=== PATIENT | female | born 1980 | race Caucasian/White ===

== ENCOUNTER 2016-12-16 23:59 | Emergency (ER) | payer OTHER ==
--- NOTE | ~2016-12-16 | CT71 ---
[facility] A Service [facility] RADIOLOGY TEXT RESULTS PATIENT: KOLBY DAVIS LOCATION: SED : 80 UNIT #: [id number] AGE: [address]: Alhaji Cornelius MD SEX: F ORDER DR: [id number] [place] [id number] E MR#: [id number] Acc #: [id number] NAME: KOLBY DAVIS : 1980 SEX: F STUDY DATE/TIME: 12/17/2016 1:11 UNIT: SED ROOM: STUDY DESCRIPTION: CT Head Wo Contrast Attending Physician: Alhaji Cornelius M.D. Ordering Physician: Alhaji Cornelius M.D. Primary Care Physician: Leanna Schwab M.D. MEDICAL IMAGING REPORT This report is preliminary unless electronic signature is present. EXAM CT head, noncontrast, 12/17/2016 HISTORY 36-year-old female in the ED complaining of 3-week history of headache and nausea. TECHNIQUE CT examination of the head was performed without IV contrast. This CT exam was performed with one or more of the following radiation dose reduction techniques: automatic exposure control, adjustment of mA and/or kV according to patient size, and iterative reconstruction. FINDINGS The examination is negative. No evidence of intracranial hemorrhage, mass, mass effect, cerebral edema, hydrocephalus or additional abnormality. IMPRESSION Negative head CT examination. Dictated by... Rey Rodriguez M.D. THIS IS AN ELECTRONICALLY VERIFIED REPORT Rey Rodriguez M.D. at 12/17/2016 5:51 AM LORENZO/sofie TD: 12/17/2016 03:23 [facility] A [facility] RADIOLOGY TEXT RESULTS PATIENT: KOLBY DAVIS LOCATION: SED : 80 UNIT #: [id number] AGE: [address]: Alhaji Cornelius MD SEX: F ORDER DR: JOB #: [id number] MEDICAL IMAGING REPORT Page 1 of 1
[~2016-12-16 23:59] MED LIST: AFRIN3 ML; ALBUTEROL17 GM; ALPRAZOLAM PO; AZITHROMYCIN250 MG; BACTRIM DS TABL1 TAB PO; CLEOCIN HCL300 M1 PO; DICYCLOMINE HCL20 MG PO; ERYTHROMYCIN333 MG PO; FLAGYL PO; FLEXERIL10 MG PO; LEVAQUIN PO; LEXAPRO5 MG PO; MOTRIN600 M1 PO; NAPROSYN500 MG PO; NO MEDICATIONS; NORCO 7.5-3251 EACH PO; NORCO1 TAB 10/3 PO; PEPCID PO; ROBAXIN 750750 M1 PO; VOLTAREN50 MG PO; VOLTAREN75 MG PO; ZITHROMAX PO; ZITHROMAX1 G/PKT PO; ZOFRAN ODT4 MG SL; ZOFRAN ODT4 MG/UDTAB PO; ZYRTEC-D TABLE1 EACH
[2016-12-17 01:02] LABS: URINE APPEARANCE CLEAR; URINE BILIRUBIN NEG (NEG); URINE BLOOD TRACE-INTACT (NEG); URINE COLOR YELLOW; URINE GLUCOSE NEG (NORM); URINE KETONE NEG (NEG); URINE LEUKOCYTE ESTERASE NEG (NEG); URINE NITRATE NEG (NEG); URINE PH 6.5 (5-8); URINE PROTEIN NEG (NEG); URINE SPECIFIC GRAVITY <=1.005 (1.003-1.035); URINE UROBILINOGEN 0.2 MG/DL (NORM)
[2016-12-17 01:03] LABS: MICRO INDICATED? YES; URINE SOURCE CLEAN CATCH
[2016-12-17 01:05] LABS: CULTURE INDICATED? NO; URINE BACTERIA NEG (NEG); URINE SQUAMOUS EPITHELIAL CELL FEW /[HPF]; URINE WBC 0-2 /[HPF] (0-5)
== END 2016-12-17 02:27 | disposition home or self-care (01) ==
LOC: SED 23:59
PROVIDERS: Emergency Medicine
DX: R51 Headache (principal); F17.200 Nicotine dependence, unspecified, uncomplicated; Z88.1 Allergy status to other antibiotic agents; F41.9 Anxiety disorder, unspecified
CPT/HCPCS: 36415; 70450; 81003; 84703; 96361; 96374; 96375; 99284; J1885; J2550